=== PATIENT | male | born 2000 | race Caucasian/White ===

== ENCOUNTER 2018-01-27 01:15 | Emergency (ER) | END 2018-01-27 04:38 | disposition home or self-care (01) ==

== ENCOUNTER 2018-02-02 04:24 | Emergency (ER) | END 2018-02-02 06:54 | disposition home or self-care (01) ==

== ENCOUNTER 2018-04-28 11:00 | Emergency (ER) | END 2018-04-28 13:36 | disposition home or self-care (01) ==